=== PATIENT | female | born 1965 | race African-American/Black ===

== ENCOUNTER 2018-01-05 07:00 | Inpatient (IN) | payer OTHER ==
[~2018-01-05] VITALS: Ht 157.5 cm; Wt 102.1 kg
[~2018-01-05 07:00] MED LIST: CYCLOBENZAPRINE10 M1 PO; HYDROCHLOROTH12.5 M2 PO; MIRALAX119 GM PO; NORVASC10 M1 PO; TOPROL XL25 MG PO; VITAMIN D31000 UNI1 PO
[2018-01-12 17:00] VITALS: BP 135/69
--- NOTE | 2018-01-12 17:14 | Operative Report ---
Operative/Inv Procedure Report Surgery Date: 01/12/18 Name of Procedure: Supracervical hysterectomy left salpingectomy Pre-Operative Diagnosis: Pelvic painPelvic pain Post-Operative Diagnosis: Same Estimated Blood Loss: 500 Surgeon/Merchandising Assistant: Dr. Wade Rich Asst. engineering assistant Venita Perry MD Anesthesia: general endotracheal tube, block Operative/Procedure Note Note: Patient was taken to the operating room placed in dorsal supine position a timeout was performed all parties present patient agreed upon surgeries surgeons agreed upon surgeries after adequate induction general anesthesia. The abdomen was prepped and draped so fashion Dr. Parish placed stents patient was returned spine position the [place] and stents in place the abdomen was prepped and draped so fashion once again through Pfannenstiel skin incision 2 fingerbreadths of symptoms pubis in midline skin was cut was carried down to rectus fascia which was cut in curvilinear fashion I direction peritoneal cavity was entered high into the abdomen Carvajal O'Tj was placed in usual fashion. This point patient was placed in Trendelenburg a ligament on the right was identified suture-ligated 0 round ligament left identified using 0 at this point the bladder flap was developed sharply as well as bluntly sequentially cervical branches uterine artery clamped and cut to left and right and suture ligated using 0 the specimen was removed the cuff was oversewn running locking suture of 0 was indicated interrupted [id number] hemostasis which was apparent the left tube was clamped 2 removed and oversewn using 0 the right tube was then present the ovaries appeared normal patient's request the ovaries will remain in place was irrigated with copious amounts of warm saline are clear at this point ER IST anicteric was applied to cervical cuffpatient tolerated that well. Peritoneum was reapproximated 0 after wants been removed and the abdomen the counts correct far shows reapproximated to continue sutures of number once suture skin was reapproximated after Bovie coagulation subcutaneous tissue patient tolerated that well stents removed bilaterally intact the patient was awakened from anesthesia extubated and transported recovery room awake alert ligament on the right was identified and suture ligated with 0 maligna left identified and suture ligated 0 Patient tolerated this well. Specimen was removed using Bovie the cuff was oversewn running locking suture of 0 hemostasis apparent all was elevated clamped 2 using a great duct left tube was removed the right tube was physical hemostasis was apparent the abdomen was irrigated closed WITH saline to clear the peritoneum was reapproximated 0 after Emil had been applied to surgical cough all counts were incorrect peritoneum Z primary 0 the fascia was reapproximated to diseases #1 and the skin was reapproximated [place] a sterile dressing was applied to the left eye counts were correct C instrument counts were were under by 2 towel clips an x-ray was obtained and found to be negative at this point the patient was extubated awakened from anesthesia and transferred recovery room awake alertand x-ray was obtained and found to be negative underbite 2 towel clips at this point the patient was extubated awakened from anesthesia and transferred recovery room awake and alert peritoneum supervising 0 the fascia was replacement to continue sutures of #1 the skin was reapproximated with radha a sterile dressing is applied the lap pack counts were correct the instrument counts were were all counts were incorrect cyst left tube was removed right tube was not visible hemostasis was apparent the abdomen is irrigated copious amounts of saline until clear the peritoneum was reapproximated 0 after Emil have been applied to surgical cough very dark tube was elevated clamped 2 using a Specimen was removed using Bovie the cuff was oversewn with running locking suture of 0 hemostasis apparent all
[2018-01-12 19:00] VITALS: BP 128/80
[2018-01-12 21:00] VITALS: BP 120/80
[2018-01-12 22:00] VITALS: BP 110/70
[2018-01-12 23:07] VITALS: BP 110/70
[2018-01-13] VITALS (8 sets, daily range): BP systolic 106–122; BP diastolic 62–80
[2018-01-13 07:46] LABS: ABSOLUTE BASOPHIL COUNT 0 /CUMM (0.0-0.2); ABSOLUTE EOSINOPHIL COUNT 0 /CUMM (0.0-0.7); ABSOLUTE GRANULOCYTE CT 9.5 /CUMM (1.4-6.5); ABSOLUTE LYMPH COUNT 1.2 /CUMM (1.2-3.4); ABSOLUTE MONOCYTE COUNT 0.4 /CUMM (0.10-0.60); BASOPHIL % 0 % (0.0-2.0); EOSINOPHIL % 0 % (0-5); GRANULOCYTE % 85.6 % (42.2-75.2); HEMATOCRIT 30.7 % (37-47); MEAN CORPUSCULAR HGB CONC 33.8 G/DL (33.0-37.0); MEAN PLATELET VOLUME 8.9 FL (7.4-10.4); PLATELET COUNT 316 /CUMM (130-400); RBC DISTRIBUTION WIDTH 14.3 % (11.5-14.5); RED BLOOD CELL CT 3.45 /CUMM (4.20-5.40); WHITE BLOOD CELL COUNT 11.1 /CUMM (4.8-10.8)
--- NOTE | 2018-01-13 08:39 | RADIOLOGY REPORT ---
EXAMINATION: XR ABDOMEN CLINICAL INDICATION: Rule out foreign body. Missing 2 towel clamps. COMPARISON: Lumbosacral spine films dated 06/11/2015. TECHNIQUE: AP view of the abdomen. FINDINGS: Frontal view of the abdomen and pelvis was performed from the mid L1 level down to the inferior margin of the bony pelvis. The hemidiaphragms are not included. Bilateral ureteral stents are seen in place. There is a horizontally oriented cutaneous staple line in the pelvis. An approximately 2 to 3 mm radiopaque density is seen in the left lower paraspinal location just above the left hemisacrum, new when compared to the prior lumbar spine study from 06/11/2015, of uncertain etiology, possibly something overlying the patient or in the patient or in bowel. Stable phleboliths are seen in the pelvis. Moderate degenerative changes are seen in the lower lumbar spine, unchanged. Mild degenerative changes seen in the hip joints. IMPRESSION: 1. No towel clamps seen on the imaged portions of the abdomen and pelvis. 2. Nonspecific 2 to 3 mm metallic densities seen projected over the left lower paraspinal region. 3. Bilateral ureteral stents and lower pelvic cutaneous staple line. This critical result was discussed with Dr. Venita Perry 01/12/2018, 2:15 PM and it was ascertained that the content and urgency of this report was understood at the time of direct communication.
--- NOTE | 2018-01-13 16:58 | PN- Post Delivery/GYN ---
Subjective Subjective: Complaining of nausea Objective Last 24 Hrs of Vital Signs/I&O Vital Signs Date Time Temp Pulse Resp B/P B/P Pulse O2 O2 Flow FiO2 Mean Ox Delivery Rate 07/ 1458 97.5 63 20 110/64 98 Room Air 07/06 0932 98.0 80 20 106/70 07/06 0855 98.0 80 20 106/70 96 Room Air 07/06 0850 22 98 Nasal 2.0L Cannula 07/06 0800 Nasal 2.0L Cannula 07/06 0700 97.8 68 18 112/70 07/06 0536 98.1 72 20 114/72 98 Nasal 2.0L Cannula 07/06 0300 98.1 70 20 110/74 97 Room Air 07/06 0110 98.2 65 20 118/80 97 Nasal 2.0L Cannula 07/05 2307 98.4 67 16 110/70 97 Nasal Cannula 07/05 2200 98.4 67 16 110/70 07/05 2100 98.4 68 16 120/80 98 Nasal 2.0L Cannula 07/05 1900 98.4 69 18 128/80 98 Nasal 2.0L Cannula 07/05 1706 98 Nasal 2.0L Cannula 07/05 1700 97.7 69 16 135/69 07/05 1700 97.7 69 16 135/69 98 Intake & Output 07/06 1600 07/06 0800 07/06 0000 Intake Total 550 100 745 Output Total 150 350 550 Balance 400 -250 195 Intake, IV 250 625 Intake, Oral 300 100 120 Output, Urine 150 350 550 Patient 225 lb Weight Weight Bed scale Measurement Method Physical Exam: Obese female HEENT anicteric Abdomen soft distention Incision clean dry and intact [place] extremities negative edema negative Homans Assessment/Plan Assessment/Plan Assessment status post supracervical hysterectomy Plan continue antiemetics advanced diet as tolerated increase ambulation Lovenox
[2018-01-14 06:21] VITALS: BP 120/60
[2018-01-14] MEDS ORDERED: PERCOCET 5-3251 EACH PO (12:27)
[2018-01-14] MEDS ORDERED: IBUPROFEN800 M1 PO (12:27)
--- NOTE | 2018-01-16 15:24 | Operative Report ---
Operative/Inv Procedure Report Surgery Date: 01/12/18 Name of Procedure: cystoscopy: bilat. stent insertion Pre-Operative Diagnosis: Mennorrhagias Post-Operative Diagnosis: same Estimated Blood Loss: scant Surgeon/Machined Parts Metal Sprayer: MD Parish Arnold-urology Anesthesia: general endotracheal tube Drains: 18fr bruno Specimens: ucx Complications: none Operative/Procedure Note Note: The patient was taken to the operating room and placed on the OR table in supine position. Timeout was performed, with the patient awake, to confirm identify, planned procedures, anesthesia, antibiotics and other pertinent glenis-operative information. After adequate anesthesia, and IV antibiotics, the patient was placed in lithotomy Yellow-fin stirrups. She was then draped and prepped in the usual surgical fashion, including a vaginal prep. A 22 Peruvian cystoscope sheath with a 30 angle lens was inserted into the bladder without significant difficulty. The bladder was thoroughly and systematically examined, and was noted to be free of tumor, free of stone, free of endometriosis. Both ureteral orifices were in their orthotopic positions with clear reflux bilaterally. Under direct visualization the left orifice was intubated with a 5 Peruvian whistle-tip catheter, which was advanced easily into the left kidney pelvis. The right ureteral orifice was intubated with a second 5 [place]uvian ureteral whistle tip catheter, and advanced into the right renal pelvis without difficulty. For identification purposes the blue marked stent went into the left kidney and the right ureteral stent was marked red. Urine culture was obtained and sent to pathology. The cystoscope was then removed leaving both stents in proper place. An 18 Peruvian Bruno catheter was inserted draining clear fluid and 10 mL of sterile water was then placed in the balloon. The ends ureteral stents, which protruded externally, were taped to the Bruno catheter in order to secure their position. The individual ureteral stents were then connected to their individual drainage devices. The patient tolerated the procedure well. All sponge needle and instrument count were correct at the end of this procedure. The patient was then placed in supine position with Venodyne's in place. At this point, Dr. Perry was able to proceed with the patient's surgery. Discharge Disposition: Proceed with dr. Perry CC: Stew Parish MD
== END 2018-01-14 13:42 | DRG 519 ==
LOC: SDA 01-12 02:03 → ENRESERV 01-12 14:51 → ENTRNSPT 01-12 16:21 → EDTRNSPTSTS 01-12 16:31 → 2NB 01-12 16:37 → CMPTRNSPT 01-12 16:57 → ENPENDDIS 01-14 12:26 → ENTRNSPT 01-14 13:17 → EDTRNSPT 01-14 13:27 → EDTRNSPTSTS 01-14 13:27 → EDTRNSPT 01-14 13:39 → 2NB 01-14 13:42 → CMPTRNSPT 01-14 13:46
PROVIDERS: Specialist
PROC: 0T788DZ Dilation of Bilateral Ureters with Intraluminal Device, Via Natural or Artificial Opening Endoscopic (ICD-10-PCS; principal; 2018-01-12)
PROC: 0UT90ZL Resection of Uterus, Supracervical, Open Approach (ICD-10-PCS; 2018-01-12)
PROC: 0UT60ZZ Resection of Left Fallopian Tube, Open Approach (ICD-10-PCS; 2018-01-12)
DX: D25.9 Leiomyoma of uterus, unspecified (principal); R10.2 Pelvic and perineal pain; I10 Essential (primary) hypertension; N92.1 Excessive and frequent menstruation with irregular cycle; R11.0 Nausea
CPT/HCPCS: 2NBP; 36415; 36592; 74018; 81001; 81025; 87086; J0131; J0694; J1100; J1170; J1200; J1650; J1885; J2405; J3490